=== PATIENT | female | born 1970 | race Caucasian/White ===

== ENCOUNTER → 2016-12-19 | Outpatient (CLI) | payer BC | END | disposition home or self-care (01) | LOC: GMAJ 14:17 | PROVIDERS: ATTEND Family Medicine | DX: R10.13 Epigastric pain (principal) ==

== ENCOUNTER → 2018-01-02 | Outpatient (CLI) | payer BC ==
--- NOTE | 2018-01-02 11:11 | US ---
EXAM DESCRIPTION: Abdomen,Complete CLINICAL HISTORY: PEPTIC ULCER COMPARISON: Previous CT abdomen and pelvis May 08, 2015 TECHNIQUE: Complete abdominal ultrasound FINDINGS: Visualized portions of the pancreas are unremarkable. No peripancreatic fluid. Bowel gas obscures some areas. Normal caliber of the aorta. Normal appearance of the inferior vena cava. Liver parenchyma is homogeneous in texture with normal echogenicity. No liver mass or intrahepatic bile duct dilatation. No liver surface irregularity. Normal appearance of hepatic veins and portal vein. Gallbladder appears normal with no intraluminal stones. No gallbladder wall thickening. Common bile duct is normal in caliber measuring 3.7 mm. The right kidney measures 10 cm in length. Normal renal cortical echogenicity. The renal cortical thickness appears normal. No right renal mass, shadowing stone or cyst. There is no hydronephrosis. Previous CT showed right hydronephrosis with stone in the right renal pelvis. No such findings on the present study. Spleen is normal in size. No focal splenic lesion. The left kidney measures 10.9 cm in length. Normal renal cortical echogenicity. The renal cortical thickness appears normal. No left renal mass, shadowing stone or cyst. There is no hydronephrosis. IMPRESSION: No diagnostic abnormality is identified on sonographic evaluation of the upper abdomen. Electronically signed by: Cliff Rodriguez MD 01/02/2018 11:10 AM CDT
== END ==
LOC: US 08:12
PROVIDERS: ATTEND Family Medicine
DX: K27.9 Peptic ulcer, site unspecified, unspecified as acute or chronic, without hemorrhage or perforation (principal)

== ENCOUNTER → 2018-03-06 | Outpatient (CLI) | payer BC | LOC: RESP 08:50 | PROVIDERS: ATTEND Orthopaedic Surgery | DX: Z01.818 Encounter for other preprocedural examination (principal) ==

== ENCOUNTER 2018-03-25 06:13 | Day surgery (SDC) | payer BC ==
--- NOTE | 2018-03-23 09:03 | HP ---
CHIEF COMPLAINT: Left shoulder pain. HISTORY OF PRESENT ILLNESS: Celina is a 47-year-old female with a history of pain in the left shoulder. It has been going on for several months. She has had injections. Unfortunately, injections and anti-inflammatories failed to give her relief. Because of that, she had had an MRI. The MRI revealed full thickness tear involving the supraspinatus. After discussing the risks, benefits and alternatives to operative therapy, the patient has given informed consent. PAST SURGICAL HISTORY: 1. Hysterectomy. 2. Foot surgery. MEDICATIONS: None. ALLERGIES: CODEINE, HYDROCODONE. CODE STATUS: Full code. IMMUNIZATIONS: Up to date. FAMILY HISTORY: None pertinent to today's complaint. SOCIAL HISTORY: The patient does not drink, smoke or use any illicit drugs. REVIEW OF SYSTEMS: Negative except as indicated in the History of Present Illness. PHYSICAL EXAMINATION: VITAL SIGNS: Blood pressure 131/91. Pulse 73. Height 5'4". Weight 157 pounds. MENTAL STATUS: The patient is awake, alert, and is able to give a good history and participate in the physical. The patient is oriented to person, place and time. SKIN: Normal tone and turgor. HEENT: Normocephalic, atraumatic. Pupils equal, round and reactive. Mucosal membranes are moist. NECK: Normal range of motion. No thyromegaly, no lymphadenopathy. CHEST: Normal respiratory excursion. CARDIAC: Regular rate and rhythm. No murmurs, rubs or gallops. MUSCULOSKELETAL: She is tender to palpation in the subacromial space with very mild tenderness over the acromioclavicular joint. She has a warm and well perfused extremity. Sensation is intact. She has full range of motion, but pain with both resisted and passive range of motion. She has pain beginning at about 90 degrees. She has a negative belly press maneuver. She has pain with forward flexion at about 110 degrees today. IMAGING: MRI does show full thickness tearing of the supraspinatus. ASSESSMENT: 1. Rotator cuff tear. PLAN: The plan at this point is for rotator cuff repair. We have discussed the risks, benefits, and alternatives to operative therapy and the patient has given informed consent. #[id number] [facility]
[~2018-03-25 06:13] MED LIST: LACTATED RINGERS 1,000 ML ONE; SODIUM CHL 0.9% 100ML MINI-BAG 100 ML IVPB ONE; ceFAZolin SODIUM 1 GM VIAL ONE
[2018-03-25] MEDS ORDERED: MIDAZOLAM INJ 2 MG/2 ML VIAL ONE ×2 (06:32→07:05)
[2018-03-25] MEDS ORDERED: BUPIVACAINE 0.5% 30 ML VIAL INJ ONE (06:32)
[2018-03-25] MEDS ORDERED: fentaNYL CITRATE INJ 50 MCG/ML AMP ONE (06:33)
[2018-03-25] MEDS ORDERED: BUPIVACAINE LIPOSOME 13.3 MG/ML VIAL INJ ONE (06:33)
[2018-03-25] MEDS ORDERED: ROCURONIUM BROMIDE 10 MG/ML VIAL ONE (06:33)
[2018-03-25] MEDS ORDERED: BUPIVACAINE 0.25% W/EPI 50 ML VIAL INJ ONE (06:36)
[2018-03-25] MEDS ORDERED: LIDOCAINE 1% W/ EPINEPHRINE 20 ML VIAL INJ ONE (06:37)
[2018-03-25] MEDS ORDERED: ACETAMINOPHEN IV 1000MG 100 ML ONE (07:38)
[2018-03-25] MEDS ORDERED: KETAMINE HCL 100 MG/ML VIAL ONE (07:38)
[2018-03-25] MEDS: ceFAZolin SODIUM 1 GM VIAL ONE ×2 (08:03→08:31)
[2018-03-25] MEDS: VANCOMYCIN HCL INJ 1,000 MG VIAL IVPB ONE ×2 (08:03→08:31)
[2018-03-25] MEDS ORDERED: ePHEDrine SULF 50 MG/ML IV ONE (10:00)
[2018-03-25] MEDS ORDERED: DEXAMETHASONE INJ 10 MG/ML VIAL IV ONE (10:00)
[2018-03-25] MEDS ORDERED: PROPOFOL 200 MG/20 ML VIAL IV ONE (10:00)
[2018-03-25] MEDS ORDERED: METOCLOPRAMIDE HCL INJ 10 MG/2 ML VIAL IV ONE (10:00)
[2018-03-25] MEDS ORDERED: raNITIdine HCL INJ 25 MG/ML VIAL IV ONE (10:00)
[2018-03-25] MEDS ORDERED: LIDOCAINE 1% 10 ML VIAL INJ ONE (10:00)
[2018-03-25] MEDS ORDERED: ONDANSETRON INJ 4 MG/2 ML VIAL ONE (10:49)
[2018-03-25 10:50] VITALS: O2SAT 97
[2018-03-25 11:59] VITALS: BP 122/78; TEMP 98
--- NOTE | 2018-03-26 09:21 | OP ---
DATE OF PROCEDURE: 03/25/18 PREOPERATIVE DIAGNOSIS: 1. Rotator cuff tear, left shoulder. POSTOPERATIVE DIAGNOSIS: 1. Rotator cuff tear, left shoulder. PROCEDURE: 1. Rotator cuff repair. SURGEON: Chay Mendoza MD. PLASTIC BLOCK BOILER RELINER: Mihir Sotelo CST, SA-C. ANESTHESIA: General. COMPLICATIONS: None. FINDINGS: Approximately 12 mm tear in the supraspinatus at its anterior edge. INDICATION: Ms. Soto has a history of pain in the shoulder that has been refractory to conservative measures. Because of her ongoing pain and refractory nature, she has requested operative intervention. After discussing the risks, benefits and alternatives to operative therapy, the patient has given informed consent for the above procedure. PROCEDURE: The patient was brought to the Operating Room and placed in the supine position. General anesthesia was induced and the patient was transitioned into the beach chair position. The arm and shoulder were sterilely prepped and draped. An incision was made at the lateral border of the acromion. Full thickness skin flaps were developed and the deltoid was split between the anterior and middle heads. Bursectomy was performed. Following that, the rotator cuff was identified. The aforementioned cuff tear was the only notable pathology. Attention was focused on that and the tear was debrided. A bony trough was made at the anatomic footprint. Following that, a double-loaded suture anchor was used for a medial row, followed by a lateral row repair. The arm was taken through a range of motion and the cuff tear was stable without any undue tension. The wound was thoroughly irrigated and the deltoid was reapproximated. The skin was closed with a combination of running and interrupted subcuticular stitches. Sterile dressing was placed. The patient was placed in a sling. The patient was awoken from anesthesia and taken to Recovery. POSTOPERATIVE PLAN: She will remain in the sling and followup with us in 2 days. Given the nature of the tear, we will likely start early passive range of motion. #[id number] [facility]
== END 2018-03-25 11:48 | disposition home or self-care (01) ==
LOC: AMB 06:13
PROVIDERS: ATTEND Orthopaedic Surgery
DX: M75.102 Unspecified rotator cuff tear or rupture of left shoulder, not specified as traumatic (principal); K21.9 Gastro-esophageal reflux disease without esophagitis; Z90.710 Acquired absence of both cervix and uterus; Z88.5 Allergy status to narcotic agent; Z88.6 Allergy status to analgesic agent; Z79.899 Other long term (current) drug therapy
CPT/HCPCS: 01630; 23420; J0690; J1100; J2250; J2405; J2765; J2780; J3010; J3370; J3490; J7050; J7120

== ENCOUNTER → 2018-12-10 | Outpatient (CLI) | payer BC | LOC: GMAJ 14:31 | PROVIDERS: ATTEND Family Medicine | DX: Z82.41 Family history of sudden cardiac death (principal); R10.13 Epigastric pain ==

== ENCOUNTER → 2018-12-17 | Outpatient (CLI) | payer BC ==
--- NOTE | 2018-12-17 18:18 | MRI ---
EXAM DESCRIPTION: Brain w/o Contrast: MRI. CLINICAL HISTORY: HEADACHE COMPARISON: None. TECHNIQUE: Multiplanar, high-field MRI unit, multiple diffusion sequences, multiple conventional sequences without contrast. FINDINGS: Normal FLAIR and T2-weighted signal in the periventricular white matter and salguero/sub-cortical white matter junctions of the cerebral hemispheres. . No hemorrhage, no cerebral edema, no mass-effect. No diffusion restriction. Circumscribed hyperintense signal on T2 sequence, T2 gradient sequence, and ADC map in the inferior right basal ganglia consistent with a cyst. Intermediate to hypointense signal on FLAIR and T1 sequences with no diffusion restriction. Remaining signal in the basal ganglia. Bilaterally is unremarkable. Normal signal in the brainstem and cerebellar hemispheres. No hemorrhage, no parenchymal edema, no mass-effect. No diffusion restriction. Concordance of the diffusion and non-diffusion sequences with no diffusion restriction. Cortical sulci, ventricles, and other CSF spaces, and the subdural spaces are normally configured for patients age. No effacement or displacement. No midline shift. No extra-axial hemorrhage. Normal flow signal void in the major vessels of the [place], and the venous sinuses. Bilateral posterior communicating arteries present. IACs are symmetric bilaterally. Fluid signal in multiple right mastoid air cells. No mass effect in the bilateral cerebellopontine angles. Pituitary gland occupies most of the sella. Base of the cerebellar tonsils is above the foramen magnum. Air-fluid level in the right sphenoid sinus and in the right maxillary antrum. Minimal mucoperiosteal thickening in the other sinuses.. The bony calvarium is intact. IMPRESSION: 1. No intra-axial extra-axial hemorrhage. No mass effect or midline shift. No cerebral edema. Cyst in the inferior right basal ganglia. 2. Normal noncontrast MRI diffusion study with no evidence of acute or subacute significant ischemia or infarction. 3. Acute sinusitis in the right maxillary antrum and the right sphenoid. Minimal chronic paranasal sinus disease also. Electronically signed by: Mihir White MD 12/17/2018 6:17 PM CDT
== END ==
LOC: MRI 09:05
PROVIDERS: ATTEND Family Medicine
DX: G93.0 Cerebral cysts (principal); J01.00 Acute maxillary sinusitis, unspecified; J01.30 Acute sphenoidal sinusitis, unspecified; J32.9 Chronic sinusitis, unspecified

== ENCOUNTER → 2019-01-15 | Outpatient (CLI) | payer BC ==
--- NOTE | 2019-01-15 15:26 | CT ---
EXAM DESCRIPTION: CT ABDOMEN AND PELVIS WITH CONTRAST CLINICAL HISTORY: GENERALIZED ABDOMINAL PAIN COMPARISON: Ultrasound abdomen January 02, 2018, CT abdomen and pelvis May 08, 2015 TECHNIQUE: CT of the abdomen and pelvis are performed during IV bolus administration of 100 and mL of Optiray 320. No oral contrast. FINDINGS: In the lower chest, the lung bases are clear. Small bilateral pleural effusions. Heart size is normal. CT abdomen The liver, spleen, pancreas, gallbladder, adrenal glands, stomach and kidneys are normal in appearance. No inflammation around the pancreas. No renal stones or hydronephrosis. No bowel dilatation to suggest obstruction. No free air or free fluid. CT pelvis Appendix appears normal. No inflammation around the cecum or terminal ileum or sigmoid colon. Bladder and distal ureters are negative for stones. Normal enhancement of pelvic vessels. No inguinal or lower pelvic adenopathy. Uterus and ovaries are not seen, evidently surgically absent. Bladder is near empty of urine. Bone window images are negative for fracture or lytic lesion. Coronal and sagittal reformatted images confirm the findings. IMPRESSION: No acute process in the abdomen or pelvis. This exam was performed according to our departmental dose-optimization program, which includes automated exposure control, adjustment of the mA and/or kV according to patient size and/or use of iterative reconstruction technique. Total DLP equals 480.76 mGycm. Electronically signed by: Cliff Rodriguez MD 01/15/2019 3:24 PM CDT
== END ==
LOC: CT 08:46
PROVIDERS: ATTEND Internal Medicine Gastroenterology
DX: R10.84 Generalized abdominal pain (principal)